=== PATIENT | male | born 1965 | race Caucasian/White ===

== ENCOUNTER 2016-07-07 01:20 | Emergency (ER) | payer BC ==
[2016-07-07 01:29] VITALS: TEMP 97.5
[2016-07-07] MEDS ORDERED: KETOROLAC 60 MG/2 ML VIAL IM STA (01:43)
[2016-07-07] MEDS ORDERED: methylPREDNISolone SOD SUCCI 125 MG/2 ML VIAL IM STA (01:43)
--- NOTE | 2016-07-07 01:49 | ED ---
Lower Extremity Injury HPI - General Chief Complaint: Extremity Injury, Lower Stated Complaint: foot pain Time Seen by Provider: 07/07/16 01:31 Source: patient, family, RN notes reviewed Mode of arrival: ambulatory Limitations: no limitations - History of Present Illness Initial Comments: 51-year-old male presents to the emergency department with a chief complaint of left foot pain. Patient has a history of gout and states he started to develop this pain today feels exactly like his normal balance over his toe. Patient states worse to touch or pressure. Patient states it feels swollen. Patient states he has had on the past as discussed like it. Patient states the pain is moderate. Patient states he hasn't had a fever chills with this. Patient denies any other symptoms.Patient denies any recent fever, chills, shortness of breath, chest pain, back pain, abdominal pain, nausea vomiting, numbness or tingling, dysuria or hematuria, constipation or diarrhea, headaches or visual changes, or any other current symptoms. - Related Data Home Medications Medication Instructions Recorded Confirmed Lisinopril [Zestril] 20 mg PO DAILY 07/07/16 07/07/16 Previous Rx's Medication Instructions Recorded methylPREDNISolone [Medrol Dose 4 mg PO DIRECTED #1 pack 07/07/16 Pack] Allergies Allergy/AdvReac Type Severity Reaction Status Date / Time No Known Allergies Allergy Verified 07/07/16 01:28 Review of Systems ROS Statement: Those systems with pertinent positive or pertinent negative responses have been documented in the HPI. ROS Other: All systems not noted in ROS Statement are negative. Past Medical History Past Medical History: Hypertension Additional Past Medical History / Comment(s): gout, History of Any Multi-Drug Resistant Organisms: None Reported Past Surgical History: No Surgical Hx Reported Past Psychological History: No Psychological Hx Reported Smoking Status: Never smoker Past Alcohol Use History: Occasional Past Drug Use History: None Reported General Exam - General Exam Comments Initial Comments: General: The patient is awake and alert, in no distress, and does not appear acutely ill. Neck: The neck is supple, there is no tenderness. Cardiovascular: There is a regular rate and rhythm. No murmur, rub or gallop is appreciated. Respiratory: Lungs are clear to auscultation, respirations are non-labored, breath sounds are equal. No wheezes, stridor, rales, or rhonchi. Musculoskeletal: Sensation intact with 2+ pulses of the left lower joint. Full range of motion of the left foot. Patient does have redness noted around the MCP of the left big toe. This is tender to touch. Patient does have full range of motion. No induration noted. Neurological: CN II-XII intact, There are no obvious motor or sensory deficits. Coordination appears grossly intact. Speech is normal. Skin: Skin is warm and dry and no rashes or lesions are noted. Psychiatric: Normal mood and affect. Limitations: no limitations Course Vital Signs 07/07/16 01:26 Temperature 97.5 F L Pulse Rate 65 Respiratory 18 Rate Blood Pressure 159/92 O2 Sat by Pulse 97 Oximetry Medical Decision Making - Medical Decision Making 51-year-old male presents to the emergency department with a chief complaint of appears to be in acute gout flareup. At this time patient states in the past he always gets Medrol Dosepak and that seems to work best for him. Patient states is exactly like his typical gout-like flareup. At this time we discussed we will give Medrol Dosepak. We discussed taking anti-inflammatories for pain as well as he needed them. We discussed return parameters and follow- up. Patient stated he understood he is Plan all questions have been answered. He will be discharged. Disposition Clinical Impression: Acute gout involving toe of left foot Disposition: HOME SELF-CARE Condition: Stable Instructions: Gout (ED), Low Purine Diet (ED) Additional Instructions: Please use medication as discussed. Please follow up with family doctor if symptoms have not improved over the next two days. Please return to the emergency room if your symptoms increase or worsen or for any other concerns. Prescriptions: methylPREDNISolone [Medrol Dose Pack] 4 mg PO DIRECTED #1 pack Referrals: Krish Roe DO [Primary Care Provider] - 1-2 days Time of Disposition: 02:36
--- NOTE | 2016-07-07 02:33 | XR ---
EXAMINATION TYPE: XR foot complete LT DATE OF EXAM: 07/07/2016 2:01 AM CLINICAL HISTORY: Left first metatarsophalangeal joint pain history of gout, no prior TECHNIQUE: Frontal, lateral and oblique images of the left foot are obtained. COMPARISON: None. FINDINGS: . There is evidence of small bone erosions and small bone densities in the medial aspect of head of t he left first metatarsal bone at the left first metatarsophalangeal joint with surrounding soft tissu e swelling and is most likely related to gout arthritis with gout tophi in place in the head of the l eft first metatarsal bone. Mild arthritic changes are noted in the left first metatarsophalangeal chun nt. Rest of the left foot showed no significant degenerative changes in the interphalangeal joints and me tatarsophalangeal joints.. Prominent plantar and posterior calcaneal spurs are noted. IMPRESSION: There is no acute fracture or dislocation. Findings are compatible with acute gout arthritis changes involving left first metatarsophalangeal shahzad int with surrounding soft tissue swelling.
[2016-07-07 02:42] VITALS: BP 150/60; PULSE 70; RESP 14
== END 2016-07-07 02:41 | disposition home or self-care (01) ==
LOC: EC 01:20
DX: M10.9 Gout, unspecified (principal); I10 Essential (primary) hypertension; Z79.899 Other long term (current) drug therapy
CPT/HCPCS: 99283; 96372 ×2; 73630; J2930; J1885

== ENCOUNTER 2017-03-13 10:24 | Emergency (ER) | payer BC, OTHER ==
--- NOTE | 2017-03-13 11:10 | XR ---
EXAMINATION TYPE: XR ankle complete LT DATE OF EXAM: 03/13/2017 CLINICAL HISTORY: Jamming injury with pain and swelling TECHNIQUE: Frontal, lateral and oblique images of the left ankle are obtained. COMPARISON: None. FINDINGS: There is no acute fracture/dislocation evident in the left ankle. The ankle mortise appea rs within normal limits. There is spurring from the medial malleolus as well as posterior and anterio r aspects of the distal tibia. There is moderate size inferior and superior calcaneal spurs. There is mild diffuse subcutaneous edema with more focal mild soft tissue swelling over medial malleolus. The re is additional moderate spurring dorsal aspect anterior talar articulation with the navicular bone. IMPRESSION: There is no acute fracture or dislocation in the left ankle.
--- NOTE | 2017-03-13 11:27 | ED ---
General Adult HPI - General Chief complaint: Extremity Injury, Lower Stated complaint: [facility] - LEFT ANKLE CRUSHING INJURY Time Seen by Provider: 03/13/17 10:38 Source: patient, RN notes reviewed, old records reviewed Mode of arrival: ambulatory Limitations: no limitations - History of Present Illness Initial comments: There is a 51-year-old male to the ER for evaluation of the. Patient comes in for evaluation of left ankle injury. Patient has work-related injury. Just prior to arrival patient a crushing injury of left ankle. Ankle is limited between 2 objects. Patient is able to ambulate but with difficulty in severe pain. No other injuries noted. - Related Data Home Medications Medication Instructions Recorded Confirmed Losartan Potassium [Losartan 50 mg PO DAILY 03/13/17 03/13/17 Potassium] Allergies Allergy/AdvReac Type Severity Reaction Status Date / Time bee venom protein (honey bee) Allergy Swelling Verified 03/13/17 10:34 Review of Systems ROS Statement: Those systems with pertinent positive or pertinent negative responses have been documented in the HPI. ROS Other: All systems not noted in ROS Statement are negative. Past Medical History Past Medical History: Hypertension Additional Past Medical History / Comment(s): gout History of Any Multi-Drug Resistant Organisms: None Reported Past Surgical History: No Surgical Hx Reported Past Psychological History: No Psychological Hx Reported Smoking Status: Never smoker Past Alcohol Use History: Occasional Past Drug Use History: None Reported General Exam - General Exam Comments Initial Comments: Significant swelling to left medial and lateral aspect of left ankle, full range of motion, neurovascularly intact Limitations: no limitations General appearance: alert, in no apparent distress Head exam: Present: atraumatic, normocephalic, normal inspection Eye exam: Present: normal appearance, PERRL, EOMI. Absent: scleral icterus, conjunctival injection, periorbital swelling ENT exam: Present: normal exam, mucous membranes moist Neck exam: Present: normal inspection. Absent: tenderness, meningismus, lymphadenopathy Respiratory exam: Present: normal lung sounds bilaterally. Absent: respiratory distress, wheezes, rales, rhonchi, stridor Cardiovascular Exam: Present: regular rate, normal rhythm, normal heart sounds. Absent: systolic murmur, diastolic murmur, rubs, gallop, clicks GI/Abdominal exam: Present: soft, normal bowel sounds. Absent: distended, tenderness, guarding, rebound, rigid Extremities exam: Present: normal inspection, full ROM, normal capillary refill. Absent: tenderness, pedal edema, joint swelling, calf tenderness Back exam: Present: normal inspection Neurological exam: Present: alert, oriented X3, CN II-XII intact Psychiatric exam: Present: normal affect, normal mood Skin exam: Present: warm, dry, intact, normal color. Absent: rash Course Vital Signs 03/13/17 10:27 Temperature 98.9 F Pulse Rate 87 Respiratory 16 Rate Blood Pressure 176/95 O2 Sat by Pulse 96 Oximetry - Reevaluation(s) Reevaluation #1: 03/13/17 11:26 Patient requiring no pain medication Medical Decision Making - Medical Decision Making 51 mailed ER for evaluation of left ankle pain. Left ankle crush injury contusion and swelling. Patient will be discharged home to continue to rest ice and elevate - Radiology Data Radiology results: report reviewed (X-ray left ankle is negative for fracture), image reviewed Disposition Clinical Impression: Contusion of left ankle Disposition: HOME SELF-CARE Condition: Good Instructions: Foot Contusion (ED) Referrals: Krish Roe DO [Primary Care Provider] - 1-2 days
[2017-03-13 11:59] VITALS: BP 148/82; PULSE 68; RESP 18; TEMP 98.4
== END 2017-03-13 12:15 | disposition home or self-care (01) ==
LOC: EC 10:24
DX: S90.02XA Contusion of left ankle, initial encounter (principal); I10 Essential (primary) hypertension; Z79.899 Other long term (current) drug therapy; Z91.030 Bee allergy status; W23.0XXA Caught, crushed, jammed, or pinched between moving objects, initial encounter; Y92.69 Other specified industrial and construction area as the place of occurrence of the external cause; Y99.0 Civilian activity done for income or pay
CPT/HCPCS: 99283

== ENCOUNTER → 2017-05-29 | Outpatient (CLI) | payer SELFPAY ==
--- NOTE | 2017-05-29 17:23 | US ---
EXAMINATION TYPE: US venous doppler duplex LE RT DATE OF EXAM: 05/29/2017 5:15 PM COMPARISON: NONE CLINICAL HISTORY: R22.42 swelling. Pt states right ankle pain and swelling SIDE PERFORMED: Right TECHNIQUE: The lower extremity deep venous system is examined utilizing real time linear array sonog gael with graded compression, doppler sonography and color-flow sonography. VESSELS IMAGED: External Iliac Vein (EIV) Common Femoral Vein Deep Femoral Vein Greater Saphenous Vein * Femoral Vein Popliteal Vein Small Saphenous Vein * Proximal Calf Veins (* superficial vessels) Grayscale, color doppler, spectral doppler imaging performed of the deep veins of the lower extremiti es. There is normal flow, compressibility, vascular waveforms. Right Leg: Negative for DVT Results called to Genoveva at Dr's office at time of exam IMPRESSION: No sonographic evidence of deep venous thrombosis within the right lower extremity.
== END | disposition home or self-care (01) ==
LOC: RADUSMAIN 16:49
PROVIDERS: ATTEND Physician Assistant
DX: R22.42 Localized swelling, mass and lump, left lower limb (principal)

== ENCOUNTER → 2021-07-02 | Outpatient (CLI) | payer OTHER ==
--- NOTE | 2021-07-02 13:44 | XR ---
EXAMINATION TYPE: XR chest 2V DATE OF EXAM: 07/02/2021 COMPARISON: NONE HISTORY: Shortness of breath TECHNIQUE: Frontal and lateral views of the chest are obtained. FINDINGS: Scattered senescent parenchymal changes noted. No evidence for infiltrate. No evidence for atelectasis. Heart size is stable. Mediastinal structures are stable and grossly unremarkable. No evidence for hilar prominence. Degenerative changes dorsal spine. IMPRESSION: 1. No evidence for acute pulmonary disease.
--- NOTE | 2021-07-02 13:46 | XR ---
EXAMINATION TYPE: XR ribs RT DATE OF EXAM: 07/02/2021 CLINICAL HISTORY: Pain, Fall Four views of the ribs fail demonstrate evidence for displaced rib fracture or secondary sign of rib fracture. Visualized lungs are clear. No evidence for pneumothorax. IMPRESSION: 1. No displaced rib fractures seen. ICD 10 NO FRACTURE, INITIAL EVALUATION
== END | disposition home or self-care (01) ==
LOC: RADXRMAIN 13:01
PROVIDERS: ATTEND Emergency Medicine
DX: S20.211A Contusion of right front wall of thorax, initial encounter (principal); X58.XXXA Exposure to other specified factors, initial encounter
CPT/HCPCS: 71046

== ENCOUNTER 2022-02-10 03:36 | Emergency (ER) | payer BC ==
[2022-02-10 03:47] VITALS: RESP 15; TEMP 97.9
--- NOTE | 2022-02-10 04:33 | CT ---
EXAMINATION TYPE: CT brain allie rutledge con DATE OF EXAM: 02/10/2022 COMPARISON: CT brain 01/30/2013 HISTORY: Fall CT DLP: 1742.2 mGycm Automated exposure control for dose reduction was used. Images of brain and cervical spine obtained with no contrast. There is a 4 x 2 cm area of cortical hypodensity left posterior temporal lobe and consistent with an old infarct. Unchanged. There is no mass effect or midline shift. No sign of intracranial hemorrhage. Skull base is intact. There is normal aeration of the mastoid sinuses. The calvarium is intact. The cervical vertebrae show some minimal straightening. There is anterior spurring at C4-5 and C5-6. No compression fracture. There is mild multilevel cervical spondylotic changes from C4 to C7. The sku ll base appears intact. No subluxation. Facet joints are intact. IMPRESSION: Mild cervical spondylotic changes. No fracture seen. 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 No acute intracranial abnormality. No change compared to ol d exam.
--- NOTE | 2022-02-10 05:49 | ED ---
Fall HPI - General Chief Complaint: Fall Stated Complaint: Fall, Head Injury Time Seen by Provider: 02/10/22 03:44 Source: EMS Mode of arrival: EMS - History of Present Illness Initial Comments: This patient is a 56-year-old man here to have evaluation after he had fallen. The patient states that he had probably about a dozen drinks tonight. Patient states that he was when he use the bathroom, lost his balance and fell. He states that it initially felt like he twisted his ankle. He states he hit his head. Patient states that these are mild now MD Complaint: fall -: minutes(s) Fall From: standing When Fall Occurred: just prior to arrival Place Fall Occurred: home Loss of Consciousness: none Prolonged Down Time?: no Symptoms Prior to Fall: none Context: alcohol use - Related Data Home Medications Medication Instructions Recorded Confirmed Losartan Potassium 50 mg PO DAILY 03/13/17 03/13/17 Allergies Allergy/AdvReac Type Severity Reaction Status Date / Time bee venom protein (honey bee) Allergy Swelling Verified 02/10/22 03:43 Review of Systems ROS Statement: Those systems with pertinent positive or pertinent negative responses have been documented in the HPI. ROS Other: All systems not noted in ROS Statement are negative. Constitutional: Denies: fever, weakness Eyes: Denies: vision change Respiratory: Denies: cough, dyspnea Cardiovascular: Denies: chest pain, palpitations Gastrointestinal: Denies: abdominal pain, vomiting, diarrhea Musculoskeletal: Reports: arthralgia. Denies: back pain Skin: Denies: rash Neurological: Denies: headache Past Medical History Past Medical History: Hypertension Additional Past Medical History / Comment(s): gout History of Any Multi-Drug Resistant Organisms: None Reported Past Surgical History: No Surgical Hx Reported Past Psychological History: No Psychological Hx Reported Past Alcohol Use History: Occasional Past Drug Use History: None Reported General Exam Limitations: no limitations General appearance: alert, appears intoxicated Head exam: Present: atraumatic, normocephalic Eye exam: Present: normal appearance. Absent: scleral icterus, conjunctival injection Neck exam: Present: normal inspection, full ROM. Absent: tenderness Respiratory exam: Present: normal lung sounds bilaterally. Absent: respiratory distress, wheezes, rales, rhonchi, stridor Cardiovascular Exam: Present: regular rate, normal rhythm, normal heart sounds. Absent: systolic murmur, diastolic murmur, rubs, gallop GI/Abdominal exam: Present: soft. Absent: distended, tenderness, guarding Extremities exam: Present: normal inspection, normal capillary refill. Absent: pedal edema, calf tenderness Back exam: Present: normal inspection Neurological exam: Present: alert, oriented X3. Absent: motor sensory deficit Skin exam: Present: warm, dry, intact, normal color. Absent: rash Course Vital Signs 02/10/22 02/10/22 03:43 06:05 Temperature 97.9 F Pulse Rate 71 81 Respiratory 15 15 Rate Blood Pressure 121/75 129/71 O2 Sat by Pulse 98 98 Oximetry Disposition Clinical Impression: Fall Disposition: HOME SELF-CARE Condition: Good Instructions (If sedation given, give patient instructions): Head Injury (ED) Is patient prescribed a controlled substance at d/c from ED?: No Referrals: Krish Roe DO [Primary Care Provider] - 1-2 days
[2022-02-10 06:06] VITALS: BP 129/71; PULSE 81
== END 2022-02-10 06:05 | disposition home or self-care (01) ==
LOC: EC 03:36
DX: S09.90XA Unspecified injury of head, initial encounter (principal); I10 Essential (primary) hypertension; Z91.030 Bee allergy status; W19.XXXA Unspecified fall, initial encounter
CPT/HCPCS: 70450; 72125; 99284